=== PATIENT | male | born 1995 | race Caucasian/White ===

== ENCOUNTER 2023-09-11 02:26 | Emergency (ER) | payer SELFPAY ==
[~2023-09-11] VITALS: Ht 170.2 cm; Wt 68.0 kg
[2023-09-11 02:28] VITALS: BP 133/88; PULSE 104; RESP 20; TEMP 97.4; O2SAT 97
[2023-09-11] MEDS ORDERED: NACL 0.9% 2,000 ML IV ONE (02:50)
[2023-09-11 03:50] VITALS: BP 133/88; PULSE 104; RESP 20; TEMP 97.4; O2SAT 97
== END 2023-09-11 03:50 | disposition home or self-care (01) ==
LOC: MED 02:26
DX: Z02.89 Encounter for other administrative examinations (principal); E11.9 Type 2 diabetes mellitus without complications; V89.2XXA Person injured in unspecified motor-vehicle accident, traffic, initial encounter; Y93.89 Activity, other specified; Y92.488 Other paved roadways as the place of occurrence of the external cause; Y99.8 Other external cause status
CPT/HCPCS: 82948; 96360; 99283; J7030